=== PATIENT | female | born 1940 | race Caucasian/White ===

== ENCOUNTER 2023-04-21 22:42 | Emergency (ER) | payer MEDICARE, OTHER | END 2023-04-22 00:10 | disposition home or self-care (01) | LOC: CSHERS 22:42 | DX: S70.01XA Contusion of right hip, initial encounter (principal); S40.022A Contusion of left upper arm, initial encounter; W18.30XA Fall on same level, unspecified, initial encounter ==

== ENCOUNTER 2023-04-29 14:36 | Emergency (ER) | payer MEDICARE, OTHER ==
[2023-04-29] MEDS ORDERED: Cyclobenzaprine 10 MG TAB ONE (15:55)
[2023-04-29] MEDS ORDERED: Lidocaine 4% Patch TD SCH (16:00)
== END 2023-04-29 16:46 | disposition home or self-care (01) ==
LOC: CSHERS 14:36
DX: S73.101A Unspecified sprain of right hip, initial encounter (principal); W18.30XA Fall on same level, unspecified, initial encounter
CPT/HCPCS: 72192